=== PATIENT | male | born 1960 | race Caucasian/White ===

== ENCOUNTER 2017-09-06 09:12 | Day surgery (SDC) | payer OTHER ==
[~2017-09-06] VITALS: Ht 182.9 cm; Wt 97.5 kg
[~2017-09-06 09:12] MED LIST: MULTIVITAMINS1 EAC8 PO
--- NOTE | 2017-09-06 13:09 | NUR ---
09/06/17 1309 Irma Brady 1305 PATIENT SLEEPING ON ARRIVAL, OPENS EYES TO VERBAL STIMULI, THEN BACK TO SLEEP. RESP EVEN, UNLABORED, SNORING, MASK AT 6 LITERS.
[2017-09-06] MEDS ORDERED: IBUPROFEN600 MG PO (13:16)
[2017-09-06] MEDS ORDERED: OXYCODON-ACETA1 EAC2 PO (13:16)
[2017-09-06] MEDS ORDERED: MAPAP325 MG PO (13:17)
--- NOTE | 2017-09-06 13:37 | NUR ---
ICED WATER AND CRACKERS GIVEN. CALL LIGHT W/IN REACH. PT DENIES ADD'L NEEDS @ THIS TIME.
--- NOTE | 2017-09-06 14:16 | NUR ---
PROVIDED MORE CRACKERS AND REFILLED WATER. PAIN MED GIVEN PT STATES HIS PAIN IS A "DULL PAIN" BUT WOULD LIKE TO STAY AHEAD OF THE PAIN. PT INQUISITIVE ABOUT DISCHARGE AND APPEARS EAGER TO GO HOME. CALL LIGHT WITHIN REACH.
--- NOTE | 2017-09-06 15:08 | NUR ---
PHYLLIS 1442: PT FAMILY IN ROOM. INSTRUCTED PT TO LET RN KNOW WHEN HE WOULD LIKE TO USE THE BR. PT UP TO BR INDEPENDENTLY, PT STATES BLADDER FEELS EMPTIED. URINE NOT MEASURED. PT TOLERATES PO PAIN MEDS AND STATES HE "IS READY TO GO HOME." DC INSTRUCTIONS GIVEN, PT VERBALIZES AN UNDERSTANDING. ALL PT QUESTIONS ANSWERED CONCISE AND CLEARLY. PT DC'S VIA WHEELCHAIR FROM DS RM 4.
--- NOTE | 2017-09-20 14:11 | OR ---
[facility] [address], [place] [address] Signed DATE OF OPERATION: 09/06/2017 SURGEON: Alie Mcdonald MD PREOPERATIVE DIAGNOSIS: Left inguinal hernia. POSTOPERATIVE DIAGNOSIS: Left direct and indirect inguinal hernia (pantaloon hernia). PROCEDURE: Repair of left inguinal hernia with implantation of Prolene mesh (underlay technique). ANESTHESIA: General LMA; Elliot Crooks CRNA and local 20 mL of 0.25% Marcaine without epinephrine. 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 He is noted to have a gurgling sensation in his left groin and a small mass, and examination confirmed a reducible left inguinal hernia. He does not have chronic cough or constipation, but does have some urinary hesitancy and frequency. He has been evaluated by a urologist in the past for this. He is considered to have BPH. He was empirically treated with Flomax by me as he was no longer taking it currently. He is admitted at this time to undergo a left inguinal hernia repair. Understand the risks of bleeding, infection, recurrence, and so on. FINDINGS: A small incision was used. 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 There was no sliding component proper. Ligation of the sac and amputation of the sac was accomplished. Additionally, there was a defect medial to the inferior epigastric vessel consistent with direct hernia. Implantation of Prolene mesh was undertaken in an underlay technique with good security of both the direct and indirect inguinal components. An ilioinguinal nerve was identified and preserved. The cord structures were normal. DESCRIPTION OF PROCEDURE: The patient was brought to the operating room, given a general LMA-type anesthetic. Preoperative antibiotic Ancef was given and sequential compression device stockings used. Heparin was subcutaneously administered. The abdomen was already shaved by the Electronically Signed By: ALIE MDCONALD MD 09/20/17 1411 PATIENT NAME: ARABELLA GOMES [place] [employer] REPORT DATE OF : 58 REPORT #: [id number] PHYSICIAN: ALIE MCDONALD MD PCP: Jojo NOLEN MD REPORT IS CONFIDENTIAL AND NOT TO BE RELEASED WITHOUT AUTHORIZATION [facility] [address], [place] [address] Signed patient at home (not directed to do this obviously). Area was then prepared for chlorhexidine solution and draped sterilely. A small incision was made cephalad to the pubic tubercle on the left side. Dissection carried through the subcutaneous tissue using electrocautery. The external oblique was incised along its fibers revealing the underlying cord. An ilioinguinal nerve branch was dissected free from the cremasteric muscle fibers and reflected laterally around the external oblique. The cord was then carefully mobilized from the inguinal canal and elevated and encircled with a [place] drain. There was a direct defect medial to the inferior epigastric vessels and an indirect hernia sac as well. The cremasteric muscle fibers were incised transversely revealing the hernia sac. It was dissected free from the cord structures with all due care, identifying the vas deferens and other structures. The hernia sac once freed from the cord structures was opened and examined internally. The fatty tissue was noted and withdrawal of it showed to be attached to the sigmoid consistent with the taenia epiploica. It was replaced into the peritoneal cavity. Under direct visualization, the neck of the sac was oversewn with 2-0 silk suture. Redundant sac amputated and passed for pathology. An Allis clamp was applied to the tendon of the transversus abdominis and the attenuated fascia of the transversalis medial to the inferior epigastric vessel was incised with electrocautery, and the properitoneal space bluntly free. A segment of Prolene mesh was cut to an elliptical configuration and secured in an underlay technique with interrupted 2-0 Prolene suture. This included the shelving edge of Poupart ligament inferiorly and beneath the tendon of the transversus abdominis superiorly. A defect was cut in the graft to accommodate the cord structures. The tails of the graft were secured carefully laterally. The ilioinguinal nerve branch was not incorporated in this closure. A 20 mL of 0.25% Marcaine without epinephrine was injected locally for postoperative analgesic benefit. The cord was replaced into the canal as was the ilioinguinal nerve. The external oblique was reapproximated with running 2-0 Vicryl suture. Mack layer was reapproximated with interrupted 2-0 Vicryl and skin closed with running subcuticular 3-0 Vicryl. Steri-Strips were applied as was a Mepilex silver sponge dressing and OpSite. The patient was allowed to emerge from anesthesia, ultimately extubated, and transferred to recovery room in good condition. Blood loss was essentially none. Sponge, needle, and instrument counts were reported as correct x3. MD SHERYL Gonzalez/SOPHIA /[id number] Electronically Signed By: ALIE MCDONALD MD 09/20/17 1411 PATIENT NAME: ARABELLA GOMES [employer] REPORT DATE OF : 58 REPORT #: [id number] PHYSICIAN: ALIE MCDONALD MD PCP: Jojo NOLEN MD REPORT IS CONFIDENTIAL AND NOT TO BE RELEASED WITHOUT AUTHORIZATION [address] [address] Signed cc: Genesis Valdez PA-C Copies: GENESIS VALDEZ PAC ~ Electronically Signed By: ALIE MCDONALD MD 09/20/17 1411 PATIENT NAME: ARABELLA GOMES [employer] O[employer]ATIVE REPORT DATE OF : 58 REPORT #: [id number] PHYSICIAN: ALIE MCDONALD MD PCP: Jojo NOLEN MD REPORT IS CONFIDENTIAL AND NOT TO BE RELEASED WITHOUT AUTHORIZATION
== END 2017-09-06 15:00 | disposition home or self-care (01) ==
LOC: DS 09:12
PROVIDERS: Surgery
PROC: 0YU60JZ Supplement Left Inguinal Region with Synthetic Substitute, Open Approach (ICD-10-PCS; principal; 2017-09-06 09:30)
DX: K40.90 Unilateral inguinal hernia, without obstruction or gangrene, not specified as recurrent (principal); N40.1 Benign prostatic hyperplasia with lower urinary tract symptoms; R39.11 Hesitancy of micturition; Z79.899 Other long term (current) drug therapy
CPT/HCPCS: 00830; C1781; J0690; J1644; J1885; J2250; J2405; J2704; J2765; J3010; J7120